=== PATIENT | male | born 1955 | race Caucasian/White ===

== ENCOUNTER 2024-12-19 17:16 | Inpatient (IN) | payer MEDICARE, SELFPAY ==
[2024-12-19 09:53] VITALS: BMI 22.4
[2024-12-19 10:07] VITALS: BP 130/76
--- NOTE | 2024-12-19 11:17 | ED.GENMED ---
History of Present Illness
<JOSE Winston Last Filed: 12/20/24 06:08>
General
Chief Complaint: Abdominal Pain
Source: patient
Exam Limitations: none
Time Seen by Provider: 12/19/24 10:50
History of Present Illness
History of Present Illness:
see MDM
Past History
<JOSE Winston Last Filed: 12/20/24 06:08>
Past History
ED Past Medical History: Other (cardiac amyloidosis)
ED Past Surgical History: Appendectomy
Social History
Tobacco: Non-smoker
Alcohol: None
Drug: None
Personal:
Review of Systems
<JOSE Winston Filed: 12/20/24 06:08>
Review of Systems
Allergies reviewed?: Yes
All Other Systems: Not applicable
Phy Exam
<JOES Winston Last Filed: 12/20/24 06:08>
Physical Exam
Physical Exam:
GENERAL: Alert , in no apparent distress
EYE: pupils equal and reactive
NECK: Supple
ENT: o/p clr, mmm.
CARDIAC: Regular rate and rhythm .
LUNGS: Clear breath sounds bilaterally, no acute respiratory distress, no wheezes/rales/rhonchi
ABDOMEN: Soft, tender RUQ most significantly; also lower abd tenderness milmd RLQ and LLQ
mild voluntary guarding
no rebound no cvat, normal bowel sounds
NEUROLOGICAL: Alert and oriented, no focal neuro deficits
SKIN: Warm and dry, skin intact.
MUSCULOSKELETAL: No edema, well perfused. neg param's sign
PSYCH: Normal and appropriate interaction.
Course
<JOSE Winston Last Filed: 12/20/24 06:08>
Orders/Labs/Results
Orders:
Orders
12/19/24 11:04
0.9% Sodium Chloride 1000 ml [Nss] 1,000 ml IV BOLUS
HYDROmorphone [Dilaudid] 0.5 mg IV NOW STA
Ondansetron Injectable [Zofran] 4 mg IV NOW STA
12/19/24 11:22
Complete Blood Count/With Diff Urgent
Comprehensive Metabolic Panel Urgent
Lactic Acid Urgent
Lipase Urgent
Urinalysis Reflex To Culture Urgent
Date Specimen was Collected: 12/19/24
Time Specimen was Collected: 11:16
Urine Microscopic Reflex Cult Urgent
Urine Culture Urgent
WILEY Source: U
Specimen Description:
Date Specimen was Collected: 12/19/24
Time Specimen was Collected: 11:16
12/19/24 12:28
US Abdomen Complete/Upper Urgent
Comment:
Reason For Exam: fever, vomiting RUQ pain
12/19/24 14:35
CT Abd/Pel (IV only)-DH only Urgent
Comment:
Reason For Exam: abd pain, vomiting, fever
12/19/24 14:44
0.9% Sodium Chloride 1000 ml [Nss] 1,000 ml IV BOLUS
Acetaminophen [Tylenol] 1,000 mg PO NOW STA
12/19/24 14:46
Piperacillin/Tazo 3.375 Gram [Zosyn] 3.375 gram in 50 ml IV NOW
12/19/24 Dinner
NPO
Allow oral meds: Yes
Allow clear liquids: Sips of Clears
12/19/24 16:49
SURGICAL CONSULT Urgent
Consulting Provider: Jack Nolan
Was physician already notified: Yes
12/19/24 17:00
Blood Culture Q30M
WILEY Source: Blood/Venous
Specimen Description:
12/19/24 17:01
Admit/Transfer Patient As Directed
Co-Sign Provider:
Level of Care: Inpatient admission
Assign to:: Medical/Surgical
Physician / Group: james
Diagnosis: cholecystitis
Reason for Hospitalization: cholecystitis
Expected length of stay greater than two midnights?: Yes
ELOS- Estimated Length of Stay in days: 2
I certify the patient meets the requirements for IP care: Yes
PRN Pain Medication Management As Directed
May give lesser potent ordered pain med per pt: Yes
preference::
Protocol:: Medication orders for pain may be administered in a
manner that supports deferring to patient preference
when the pt is:
- Requesting an ordered lesser potent pain medication.
Least to most potent pain medications are defined
as: acetaminophen < NSAID < tramadol < opioids
(morphine, oxycodone, hydromorphone).
- Requesting a lesser dose of the same medication IF
ORDERED.
- Requesting a less intrusive route of administration
if both routes are prescribed by the provider (PO <
IV).
12/19/24 17:02
Code Status As Directed
Resuscitation Status: Full Code
12/19/24 17:30
Blood Culture Q30M
WILEY Source: Blood/Venous
Specimen Description:
12/19/24 18:11
0.9% Sodium Chloride 1000 ml [Nss] 1,000 ml IV 100 mls/hr
HYDROmorphone [Dilaudid] 0.5 mg IV Q4HPRN PRN
Ondansetron Injectable [Zofran] 4 mg IV Q6HPRN PRN
12/19/24 18:11
Activity As Directed
Activity Level: As Tolerated
Pneumatic Compression Sleeves As Directed
Type: Knee high
Vital Signs As Directed
Frequency: Per unit guidelines
DX Deep Vein Thrombosis Video Routine
12/19/24 21:00
Acetaminophen [Tylenol] 650 mg PO Q4HPRN PRN
Piperacillin/Tazo 3.375 Gram [Zosyn] 3.375 gram in 50 ml IV Q6H
12/20/24 06:00
Complete Blood Count/With Diff IN AM
Comprehensive Metabolic Panel IN AM
Abnormal Lab Results
12/19/24
11:22
WBC 17.5 H 10^3/uL
(4.8-10.8)
MPV 10.5 H fL
(7.4-10.4)
Abs Immat Gran (auto) 0.1 H 10^3/uL
(0-0.05)
Absolute Neuts (auto) 14.6 H 10^3/uL
(1.4-6.5)
Absolute Lymphs (auto) 0.8 L 10^3/uL
(1.2-3.4)
Absolute Monos (auto) 2.0 H 10^3/uL
(0.1-0.6)
Neutrophils % 83.3 H %
(42.2-75.2)
Lymphocytes % 4.6 L %
(20.5-51.1)
Monocytes % 11.3 H %
(1.7-9.3)
Glucose 124 H mg/dl
(70-99)
Total Bilirubin 1.4 H mg/dl
(0.2-1.3)
Urine Ketones 3+ A
(Negative)
Ur Occult Blood Reflex 1+ A
(Negative)
Leukocyte Esterase Rfl 1+ A
(Negative)
Urine Bacteria (Reflex) Few A
(Negative)
Urine Albumin (Reflex) 3+ A
(Neg - Trace)
12/19/24 11:22
12/19/24 11:22
Vital Signs
Initial and Last Documented VS:
Initial Vital Signs
Temp Pulse Resp BP Pulse Ox
37.1 C 112 18 130/76 97
12/19/24 10:07 12/19/24 10:07 12/19/24 10:07 12/19/24 10:07 12/19/24 10:07
Last Documented Vital Signs
Temp Pulse Resp BP Pulse Ox
37.4 C 97 18 104/69 94
12/19/24 23:40 12/19/24 23:40 12/19/24 23:40 12/19/24 23:40 12/19/24 23:40
<Jose David Villa MD - Last Filed: 12/19/24 16:51>
Orders/Labs/Results
Orders:
Orders
12/19/24 11:04
0.9% Sodium Chloride 1000 ml [Nss] 1,000 ml IV BOLUS
HYDROmorphone [Dilaudid] 0.5 mg IV NOW STA
Ondansetron Injectable [Zofran] 4 mg IV NOW STA
12/19/24 11:22
Complete Blood Count/With Diff Urgent
Comprehensive Metabolic Panel Urgent
Lactic Acid Urgent
Lipase Urgent
Urinalysis Reflex To Culture Urgent
Date Specimen was Collected: 12/19/24
Time Specimen was Collected: 11:16
Urine Microscopic Reflex Cult Urgent
Urine Culture Urgent
WILEY Source: U
Specimen Description:
Date Specimen was Collected: 12/19/24
Time Specimen was Collected: 11:16
12/19/24 12:28
US Abdomen Complete/Upper Urgent
Comment:
Reason For Exam: fever, vomiting RUQ pain
12/19/24 14:35
CT Abd/Pel (IV only)-[facility] only Urgent
Comment:
Reason For Exam: abd pain, vomiting, fever
12/19/24 14:44
0.9% Sodium Chloride 1000 ml [Nss] 1,000 ml IV BOLUS
Acetaminophen [Tylenol] 1,000 mg PO NOW STA
12/19/24 14:46
Piperacillin/Tazo 3.375 Gram [Zosyn] 3.375 gram in 50 ml IV NOW
12/19/24 Dinner
NPO
Allow oral meds: Yes
Allow clear liquids: Sips of Clears
12/19/24 16:49
SURGICAL CONSULT Urgent
Consulting Provider: Jack Nolan
Was physician already notified: Yes
12/19/24 17:00
Blood Culture Q30M
WILEY Source: Blood/Venous
Specimen Description:
12/19/24 17:01
Admit/Transfer Patient As Directed
Co-Sign Provider:
Level of Care: Inpatient admission
Assign to:: Medical/Surgical
Physician / Group: james
Diagnosis: cholecystitis
Reason for Hospitalization: cholecystitis
Expected length of stay greater than two midnights?: Yes
ELOS- Estimated Length of Stay in days: 2
I certify the patient meets the requirements for IP care: Yes
PRN Pain Medication Management As Directed
May give lesser potent ordered pain med per pt: Yes
preference::
Protocol:: Medication orders for pain may be administered in a
manner that supports deferring to patient preference
when the pt is:
- Requesting an ordered lesser potent pain medication.
Least to most potent pain medications are defined
as: acetaminophen < NSAID < tramadol < opioids
(morphine, oxycodone, hydromorphone).
- Requesting a lesser dose of the same medication IF
ORDERED.
- Requesting a less intrusive route of administration
if both routes are prescribed by the provider (PO <
IV).
12/19/24 17:02
Code Status As Directed
Resuscitation Status: Full Code
12/19/24 17:30
Blood Culture Q30M
WILEY Source: Blood/Venous
Specimen Description:
12/19/24 18:11
0.9% Sodium Chloride 1000 ml [Nss] 1,000 ml IV 100 mls/hr
HYDROmorphone [Dilaudid] 0.5 mg IV Q4HPRN PRN
Ondansetron Injectable [Zofran] 4 mg IV Q6HPRN PRN
12/19/24 18:11
Activity As Directed
Activity Level: As Tolerated
Pneumatic Compression Sleeves As Directed
Type: Knee high
Vital Signs As Directed
Frequency: Per unit guidelines
DX Deep Vein Thrombosis Video Routine
12/19/24 21:00
Acetaminophen [Tylenol] 650 mg PO Q4HPRN PRN
Piperacillin/Tazo 3.375 Gram [Zosyn] 3.375 gram in 50 ml IV Q6H
12/20/24 06:00
Complete Blood Count/With Diff IN AM
Comprehensive Metabolic Panel IN AM
Abnormal Lab Results
12/19/24
11:22
WBC 17.5 H 10^3/uL
(4.8-10.8)
MPV 10.5 H fL
(7.4-10.4)
Abs Immat Gran (auto) 0.1 H 10^3/uL
(0-0.05)
Absolute Neuts (auto) 14.6 H 10^3/uL
(1.4-6.5)
Absolute Lymphs (auto) 0.8 L 10^3/uL
(1.2-3.4)
Absolute Monos (auto) 2.0 H 10^3/uL
(0.1-0.6)
Neutrophils % 83.3 H %
(42.2-75.2)
Lymphocytes % 4.6 L %
(20.5-51.1)
Monocytes % 11.3 H %
(1.7-9.3)
Glucose 124 H mg/dl
(70-99)
Total Bilirubin 1.4 H mg/dl
(0.2-1.3)
Urine Ketones 3+ A
(Negative)
Ur Occult Blood Reflex 1+ A
(Negative)
Leukocyte Esterase Rfl 1+ A
(Negative)
Urine Bacteria (Reflex) Few A
(Negative)
Urine Albumin (Reflex) 3+ A
(Neg - Trace)
12/19/24 11:22
12/19/24 11:22
Vital Signs
Initial and Last Documented VS:
Initial Vital Signs
Temp Pulse Resp BP Pulse Ox
37.1 C 112 18 130/76 97
12/19/24 10:07 12/19/24 10:07 12/19/24 10:07 12/19/24 10:07 12/19/24 10:07
Last Documented Vital Signs
Temp Pulse Resp BP Pulse Ox
37.4 C 97 18 104/69 94
12/19/24 23:40 12/19/24 23:40 12/19/24 23:40 12/19/24 23:40 12/19/24 23:40
<Priya Norton PA-C - Last Filed: 12/20/24 06:08>
MDM/Problems Addressed
Differential Diagnosis Includes:
see MDM
MDM/Problems Addressed:
Note:
CHIEF COMPLAINT(S)
Acute abdominal pain.
HISTORY OF PRESENT ILLNESS
The patient is a 69-year-old male h/o amyloidosis presenting with a sudden onset of acute abdominal pain that began two days ago. The pain is diffuse, affecting the entire abdominal area, but with some localization to the right upper quadrant. The
pain has been persistent and severe, with the patient rating it as seven on a scale of ten at the time of evaluation, although it was noted to be more intense during initial onset.
The patient denies any previous episodes of similar pain and has not been evaluated for gallstones or kidney stones in the past. No history of fever or recent episodes of diarrhea was reported, although he expressed a wish that diarrhea could
relieve the discomfort. There is no past history of diverticulitis, and he has undergone colonoscopies which reportedly showed no abnormalities, such as diverticulosis.
The patient is normally active and reports significant impact on daily functioning due to the pain, stating, 'Im normally not this weak.' The pain has not been alleviated and is accompanied by overall abdominal tenderness.
PAST MEDICAL HISTORY
- Amyloidosis.
CHRONIC MEDICAL CONDITIONS SIGNIFICANTLY AFFECTING CARE
- Amyloidosis.
ALLERGIES
The patient reports no known allergies.
PHYSICAL EXAM
- Abdominal examination reveals tenderness throughout, with increased tenderness noted over the right upper quadrant.
- Nursing notes reviewed and vital signs reviewed.
PROBLEM LIST
Acute:
- Diffuse abdominal pain with right upper quadrant tenderness.
Chronic:
- Amyloidosis.
PLAN
- Obtain laboratory tests and imaging studies, likely starting with a CT scan unless liver function tests are markedly elevated, in which case an ultrasound will be considered.
- Administer intravenous pain medication and antiemetics (Ondansetron).
- Initiate intravenous fluid therapy.
- Instruct the patient to refrain from oral intake to prepare for potential diagnostic procedures and to determine next steps based on findings.
DIFFERENTIAL DIAGNOSIS
The Differential Diagnosis includes, in no particular order and is not limited to:
- Cholecystitis
- Diverticulitis
- Colitis
- Pancreatitis
- Small bowel obstruction
- Renal colic due to kidney stones
- Hepatitis
- Peptic ulcer disease
- Mesenteric ischemia
- Abdominal aortic aneurysm
12/19/24 - 14:38
Patient reports low levels of both pain and nausea. Pain is rated at 3/10 and is now located lower in the abdomen, distinct from previous episodes. Liver markers are normal; however, the white blood cell count is elevated at 17,000. A CT scan has
been ordered to further investigate the cause of symptoms. The patient is advised to remain NPO until further results are available, but will receive another liter of fluids. Tylenol will be administered for symptom management, and the patient may
request additional IV pain medication if needed. Ultrasound indicates no gallstones, and gallbladder wall thickness is not concerning at this time. Further evaluation is necessary to determine the cause of lower abdominal tenderness, as it is
unlikely to be related to the gallbladder.
Anticipate patient will need to be admitted. Signed out pending CT
<Priya Norton PA-C - Last Filed: 12/20/24 06:08>
*Pulse Oximetry
SaO2: 97
Oxygen Mode of Delivery: Room air
Patient hypoxic: no (97)
*Critical Care Note
Total Time (30-74mins, 75-104mins- exclusive of procedures): Not Applicable
ED Attending Note
<Priya Norton PA-C - Last Filed: 12/20/24 06:08>
-
Portions of this chart may have been created with voice recognition software.� Occasional wrong word or��sound alike� substitutions may have occurred due to the inherent limitations of voice recognition software.
<Jose David Villa MD - Last Filed: 12/19/24 16:51>
ED Attending Note
Patient seen and examined by attending physician: Yes
ED Attending Note:
I have seen and evaluated the patient with a [id number] encounter. I have spoken to the advance practicer provider and involved in the medical history, the physical exam, medical decision making.
Evaluation and management service: agree unless noted differently below.
Results interpretation: agree unless noted differently below.
Focused HPI: 69-year-old male presents to the emergency room with his for evaluation of abdominal pain with fever. Patient reports onset of symptoms 3 days ago and have been constant since that time. He reports diffuse pain in the abdomen.
Associated with nausea and vomiting. He has fevers and generalized achiness. He reports very poor appetite. Denies similar symptoms the past. He does have prior surgical history of appendectomy.
Physical exam: Awake and alert nontoxic. Tachycardic and febrile here. Normotensive. Abdomen soft, diffusely tender maybe slightly worse on the right side. No peritoneal signs.
Medical Decision Makin-year-old male presents with fever and abdominal pain. Vitals and exam as above. His labs were significant for leukocytosis. Urinalysis essentially bland. His upper abdominal ultrasound showed no signs of
cholecystitis. We are awaiting results of CT abdomen. Given fluids and antipyretics. Continue to monitor.
CT reviewed and interestingly on CT there is signs concerning for cholecystitis. No other clear source for infection. Received IV antibiotics here. Case discussed with general surgery for assessment. Will admit to the hospitalist service for
continued management. Discussed case with hospitalist.
Discharge Plan
Departure
Patient Disposition: Admit
Date of Disposition: 12/19/24
Time of Disposition: 16:50
Admit to doctor: James
Presentation/result/management discussed w/ accepting MD/DO: Hospitalist
Discharge Problem:
Acute cholecystitis
Interventions
Interventions:
*Risk Screen - Suicide Last Done: 12/19/24 10:07
*General Assessment Last Done: 12/19/24 10:07
*Neglect/Abuse Screening Last Done: 12/19/24 17:46
*ED- Fall Risk Assessment Last Done: 12/19/24 17:46
*ED COVID-19 Vaccine History Last Done: 12/19/24 18:12
*Nursing Disposition Last Done: 12/19/24 17:46
XR-Mfljdw-Ecimqrhqyr Assessment Last Done: 12/19/24 11:33
Discharge Date and Time
Discharge Date/Time: 12/19/24 18:10
[2024-12-19] MEDS: DILAUDID 0.5 MG IV (11:30)
[2024-12-19] MEDS: ZOFRAN 4 MG IV (11:30)
[2024-12-19] MEDS: NSS 1000 IV ×3 (11:31→19:45)
[2024-12-19 11:34] LABS: Hematocrit 45.4 % (39.0-52.0); Hemoglobin 15.8 g/dL (13.0-18.0); Mean Corp Hgb Conc. 34.8 g/dL (33.0-37.0); Mean Corpuscular Volume 87.3 fL (80.0-94.0); Nucleated Red Blood Cells % 0 % (-); Platelet Count 173 10^3/uL (130-400); Red Cell Dist. Width 13.6 % (11.5-14.5)
[2024-12-19 11:55] LABS: ALT (SGPT) 25 U/L (0-50); AST (SGOT) 26 U/L (17-59); Albumin 4.2 g/dl (3.5-5.0); Alkaline Phosphatase 90 U/L (38-126); Blood Urea Nitrogen 14 mg/dl (9-20); Calcium 9.0 mg/dl (8.4-10.2); Carbon Dioxide 27 mmol/L (22-30); Chloride 98 mmol/L (98-107); Estimated Creatinine Clearance 82 ml/min; Glucose 124 mg/dl (70-99); Lipase 54 U/L (23-300); Potassium 4.1 mmol/L (3.5-5.1); Sodium 135 mmol/L (135-145); Total Protein 6.7 g/dl (6.3-8.2); eGFR > 60.00
[2024-12-19 12:48] LABS: Urine Character Clear (Clear)
[2024-12-19 13:34] LABS: Urine Red Blood Cell 0-2 /HPF (0-2)
[2024-12-19] MEDS: TYLENOL 1000 MG PO (14:53)
[2024-12-19] MEDS: ZOSYN 50 IV ×2 (14:54→20:00)
[2024-12-19 15:22] VITALS: BP 124/79
[2024-12-19 16:54] VITALS: BP 108/61
--- NOTE | 2024-12-19 17:04 | HPS.HSE ---
Family Physician
-
Family Physician: Flory Rosales MD
Chief Complaint
-
abdominal pain
History of Present Illness
69-year-old male past medical history of cardiac amyloidosis on Vyndamax, presenting with diffuse abdominal pain with vomiting and fever of 101 for the past 2 days. Denies diarrhea. Denies chest pain or shortness of breath.
He denies smoking or alcohol or drugs.
Medical History
Past Medical History
Past Medical History: Reports Other (cardiac amyloidosis on Vyndamax,)
Past Surgical History: Reports Other ( Appendectomy, tonsillectomy)
Social History
Tobacco: Non-smoker
Alcohol: None
Drug: None
Family History
Family History: Not pertinent
Allergies / Home Medications
Allergies reflects when Allergies were last updated in [facility].
Home Medications with original date entered in [facility]
Allergy/Medication List:
Allergies
Allergy/AdvReac Type Severity Reaction Status Date / Time
No Known Allergies Allergy Unverified 12/19/24 10:08
Review of Systems
-
History Source: Patient
A 12 point ROS was completed and negative except as noted: Yes
Constitutional: Reports No Symptoms
EENT: Reports No Symptoms
Respiratory: Reports No Symptoms
Cardiac: Reports No Symptoms
Abdomen/GI: Reports See HPI
: Reports No Symptoms
Musculoskeletal: Reports No Symptoms
Skin: Reports No Symptoms
Neurological: Reports No Symptoms
Endocrine: Reports No Symptoms
Hematologic/Lymphatic: Reports No Symptoms
Psych: Reports No Symptoms
Physical Exam
Vital Signs
Vital Signs
Temp Pulse Resp BP Pulse Ox
99.4 F 82 16 108/61 100
12/19/24 16:54 12/19/24 16:54 12/19/24 16:54 12/19/24 16:54 12/19/24 16:54
Physical Exam
General: Well Developed, Well Nourished and No Apparent Distress
HEENT: NormoCephalic, Moist mucous membranes and Atraumatic
Respiratory: Clear
Cardiac: S1/S2 and Regular Rhythm; No Murmur or Rub
GI: Soft, Non Distended, Normal Bowel Sounds and Tender (diffusely ); No Organomegaly
Rectal: Deferred by Provider
Musculoskeletal: No Clubbing, No Cyanosis and No Edema
Skin: No Rash
Neuro: Nonfocal/grossly intact
Laboratory Results
-
12/19/24 11:22
12/19/24 11:22
Laboratory Results
Lactic Acid 1.0 mmol/L (0.7-2.0) 12/19/24 11:22
Total Bilirubin 1.4 mg/dl (0.2-1.3) H 12/19/24 11:22
AST 26 U/L (17-59) 12/19/24 11:22
ALT 25 U/L (0-50) 12/19/24 11:22
Alkaline Phosphatase 90 U/L (38-126) 12/19/24 11:22
Lipase 54 U/L (23-300) 12/19/24 11:22
Data Reviewed
-
Lab Data: Labs Reviewed by me
Old Records: Reviewed
Impression/Plan
-
IMPRESSION:
PLAN:
# Acute cholecystitis
-Leukocytosis
-Urinalysis negative
-N.p.o.
-IV fluids
-Zofran, Dilaudid
-Zosyn
-Abdominal ultrasound negative
-CT abdomen pelvis shows mild diffuse irregular gallbladder wall thickening, mild gallbladder distention and mild to moderate Gaurang cholecystic inflammation suggesting acute cholecystitis, mild reactive wall thickening in the second part of the
duodenum
- General Surgery consult
Cardiac amyloidosis
-On Vyndamax
-Reportedly normal ejection fraction
Full code
DVT prophylaxis�SCDs
N.p.o.
--- NOTE | 2024-12-19 17:50 | CON.GS ---
Consultation
-
Date/Time Consultation Performed: 12/19/2024 1750
Performing Provider: An
Reason for Consultation: abdominal pain
Medical History
-
Chief Complaint: Abdominal pain, fever chills
History of Present Illness:
Patient is a 69-year-old male presenting to the emergency department secondary to a 3-day history of generalized abdominal pain followed by fevers chills and nausea. Past medical history notable for cardiac amyloidosis but with preserved cardiac
function. Past medical history only for open appendectomy.
Patient and his state he was in his usual baseline state of health until Tuesday morning when he took note of the acute onset of a generalized abdominal pain that was quite severe. Tuesday he had some friends over but does not recall eating any
particular food out of the usual. No similar episodes like this in the past. The pain was nonlocalizing and throughout the abdomen. He denies any radiation into the back or scapular area. He states that it was a 13 out of 10 when it first
started and then it began to slowly ease up to 9 out of 10 the last 48 hours. He initially had nausea and a few episodes of vomiting. He has not moved his bowels in the past few days. No significant oral intake. Anorexia. Fevers chills 24 to 36
hours. No symptoms.
Past Medical History
Past Medical History: Other (Cardiac amyloidosis)
Past Surgical History: Appendectomy
Social History
Tobacco: Non-Smoker
Personal:
Living: With Family
Family History
Family History: Reviewed & Noncontributory
Allergies / Home Medications
Allergy/AdvReac Type Severity Reaction Status Date / Time
No Known Allergies Allergy Unverified 12/19/24 10:08
�Medication �Instructions �Recorded �Confirmed �Type
tafamidis 61 mg capsule (Vyndamax) 61 mg PO QPM 12/19/24 12/19/24 History
Review of Systems
-
History Source: Patient and Family
All other systems: Negative unless noted
A 10 point review of systems was completed, and was negative except as per HPI.
Physical Exam
Vital Signs
Temp Pulse Resp BP Pulse Ox
99.4 F 82 16 108/61 100
12/19/24 16:54 12/19/24 16:54 12/19/24 16:54 12/19/24 16:54 12/19/24 16:54
12/18/24 12/19/24 12/20/24
06:59 06:59 06:59
Actual Weight 77.111 kg
Body Mass Index (BMI) 22.4
Lab Results
12/19/24 11:22
12/19/24 11:22
WBC 17.5 10^3/uL (4.8-10.8) H 12/19/24 11:22
Hgb 15.8 g/dL (13.0-18.0) 12/19/24 11:22
Hct 45.4 % (39.0-52.0) 12/19/24 11:22
Plt Count 173 10^3/uL (130-400) 12/19/24 11:22
Abs Immat Gran (auto) 0.1 10^3/uL (0-0.05) H 12/19/24 11:22
Neutrophils % 83.3 % (42.2-75.2) H 12/19/24 11:22
Physical Exam
General: Well Developed, Well Nourished, No Apparent Distress and Comfortable (But acutely ill-appearing. Evaluated in emergency department lying on stretcher. at bedside)
HEENT: Normocephalic, Anicteric, Moist Mucous Membranes and Atraumatic
Respiratory: Non Labored Respirations
GI: Soft, Non Distended, Tender (Generalized tenderness on palpation. No rebound. Occasional guarding somewhat localizing to the right hemiabdomen more than left.) and Other (Negative Galvan's.)
Skin: Warm
Neuro: AO x 3
Psych: Calm
Data Reviewed
-
Radiology: Image Personally Visualized and interpreted (Gallbladder without stones sludge or radiopaque debris. No wall thickening. No pericholecystic edema. No biliary ductal dilation. Common bile duct 3.3 mm.), Report Reviewed by me, Discussed
with Patient and Discussed with Family
CT Scan: Image Personally Visualized and interpreted, Report Reviewed by me, Discussed with Patient, Discussed with Family and Other (In the right upper quadrant there is an inflammatory reaction around the region of the transverse colon 2nd/3rd
portion of the duodenum and adjacent to the gallbladder. The gallbladder itself does not appear to have thickening. There are no radiopaque stones. There is no biliary ductal dilation.)
Labs: Labs Reviewed by me (White blood cell count 17.5, chemistry panel notable for slightly elevated bilirubin of 1.4. Remaining LFTs normal as well as lipase.), Discussed with Patient and Discussed with Family
Assessment / Plan
-
Assessment: 69-year-old male presenting with acute generalized abdominal pain but right sided tenderness with leukocytosis, anorexia and fevers.
Ultrasound imaging unremarkable (no gallstones, no gallbladder wall thickening or pericholecystic edema) however CT abdomen/pelvis shows inflammatory process in the right upper quadrant around the region of the hepatic flexure/transverse colon/2nd
and 3rd portion of the duodenum and adjacent to the gallbladder. No gallstones. No biliary ductal dilation. Radiology suspicion is for cholecystitis as the primary source of inflammation however not definitive on my review of images nor based on
examination.
Differential diagnosis includes acute cholecystitis, choledocholithiasis with cholangitis, segmental colitis as well as duodenitis.
Plan: Agree with admission, IV fluid hydration and bowel rest with empiric antibiotic coverage of the GI tract, Zosyn initiated.
Recommend further imaging with HIDA scan to evaluate for cystic duct patency.
Repeat CBC and CMP tomorrow a.m.
Further surgical recommendations pending HIDA results -if positive and there is nonvisualization of the gallbladder and we would discuss further indication for cholecystectomy. If HIDA scan negative await clinical course for further determination
regarding patient's.
Will follow.
Any of the patient's or his 's concerns or questions were comfortably fully addressed.
[2024-12-19 18:19] VITALS: BP 106/64
--- NOTE | 2024-12-19 18:24 | PTCARENOTE ---
Received patient from ER via stretcher around 1805 in stable condition. Patient and oriented to room. Call combs in reach.
[2024-12-19 23:40] VITALS: BP 104/69
[2024-12-20] VITALS (10 sets, daily range): BP systolic 87–135; BP diastolic 48–69
[2024-12-20] MEDS: ZOSYN 50 IV ×3 (02:25→21:03)
[2024-12-20] MEDS: NSS 1000 IV ×2 (05:15→17:28)
[2024-12-20 06:25] LABS: Hematocrit 40.2 % (39.0-52.0); Hemoglobin 14.0 g/dL (13.0-18.0); Mean Corp Hgb Conc. 34.8 g/dL (33.0-37.0); Mean Corpuscular Volume 89.3 fL (80.0-94.0); Platelet Count 145 10^3/uL (130-400); Red Cell Dist. Width 13.9 % (11.5-14.5)
[2024-12-20 06:26] LABS: Nucleated Red Blood Cells % 0 % (-)
[2024-12-20 06:58] LABS: ALT (SGPT) 23 U/L (0-50); AST (SGOT) 23 U/L (17-59); Albumin 3.3 g/dl (3.5-5.0); Alkaline Phosphatase 85 U/L (38-126); Blood Urea Nitrogen 15 mg/dl (9-20); Calcium 8.5 mg/dl (8.4-10.2); Carbon Dioxide 24 mmol/L (22-30); Chloride 104 mmol/L (98-107); Estimated Creatinine Clearance 74 ml/min; Glucose 101 mg/dl (70-99); Potassium 3.7 mmol/L (3.5-5.1); Sodium 136 mmol/L (135-145); Total Protein 5.8 g/dl (6.3-8.2); eGFR > 60.00
[2024-12-20] MEDS: TYLENOL 650 MG PO (07:58)
[2024-12-20] MEDS: DILAUDID 0.5 MG IV (07:59)
[2024-12-20] MEDS: ZOFRAN 4 MG IV (08:02)
--- NOTE | 2024-12-20 09:10 | W.PN.GS2 ---
Today's Communication / Plan
-
`
Assessment / Plan
-
Assessment: 69-year-old male presenting with acute generalized abdominal pain but right sided tenderness with leukocytosis, anorexia and fevers.
Ultrasound imaging unremarkable (no gallstones, no gallbladder wall thickening or pericholecystic edema) however CT abdomen/pelvis shows inflammatory process in the right upper quadrant around the region of the hepatic flexure/transverse colon/2nd
and 3rd portion of the duodenum and adjacent to the gallbladder. No gallstones. No biliary ductal dilation. Radiology suspicion is for cholecystitis as the primary source of inflammation however not definitive on my review of images nor based on
examination.
Differential diagnosis includes acute cholecystitis, choledocholithiasis with cholangitis, segmental colitis as well as duodenitis.
low grade temps, LFTs normal, WBC improving
Plan: NPO IVF supportive care
empiric abx coverage with Zosyn
added PPI as well
HIDA today - d/w nuc med dept
Subjective Data
-
Date of Service: December 20, 2024
pt seen and examined
at bedside
episode of increased abd pain earlier this AM with sweats; more right sided than other area of abdomen
mild nausea
+fl and BM this AM
Objective Data
-
Intake and Output
12/19/24 12/20/24 12/21/24
06:59 06:59 06:59
Intake Total 1200 / 1200
Balance 1200 / 1200
Intake:
Oral fluids 1100 / 1100
IV piggybacks 100 / 100
Other:
Number of approximated MODERATE 1
amounts of urine
Number of approximated LARGE 1
amounts of urine
Vital Signs
Temp Pulse Resp BP Pulse Ox
100.2 F 94 18 135/69 95
12/20/24 07:52 12/20/24 07:52 12/20/24 07:52 12/20/24 07:52 12/20/24 07:52
Lab Results
12/20/24 05:21
12/20/24 05:21
Calcium 8.5 mg/dl (8.4-10.2) 12/20/24 05:21
Total Bilirubin 1.3 mg/dl (0.2-1.3) 12/20/24 05:21
AST 23 U/L (17-59) 12/20/24 05:21
ALT 23 U/L (0-50) 12/20/24 05:21
Alkaline Phosphatase 85 U/L (38-126) 12/20/24 05:21
Total Protein 5.8 g/dl (6.3-8.2) L 12/20/24 05:21
Albumin 3.3 g/dl (3.5-5.0) L 12/20/24 05:21
Physical Exam
-
NAD AAOx3 but acutely ill appearing
ABD: soft, ND, TTP right side, no rebound, some guarding on deeper palpation
[2024-12-20] MEDS: NSS (PRESERVATIVE FREE) 10 ML IV (12:15)
[2024-12-20] MEDS: PROTONIX IV 40 MG IV (12:15)
--- NOTE | 2024-12-20 12:21 | W.PN.HOSP.TC ---
Today's Communication/Plan
-
see outlined plan below
Assessment / Plan
Assessment / Plan
Assessment:
Acute cholecystitis
- CT: Mild diffuse irregular gallbladder wall thickening, mild gallbladder distention, and mild to moderate pericholecystic inflammation in the right upper quadrant of the abdomen suggesting ACUTE CHOLECYSTITIS. Mild reactive wall thickening in the
2nd portion of the duodenum and in the hepatic flexure of the colon without evidence for acute colonic diverticulitis or duodenal ulceration.
- HIDA: cystic duct obstruction and acute cholecystitis
- NPO for OR Today
- IVF
- IV Zosyn; follow cultures
- pain control/anti-emetics
- GS following
Cardiac amyloidosis
- On Vyndamax
- Reportedly normal ejection fraction
DVT ppx: SCDs
Code: Full
Anticipated Discharge: > 48 hours
Subjective/Interval History
-
Date of Service: December 20, 2024
reports RUQ discomfort
HIDA consistent with cystic duct obstruction and acute cholecystitis
for OR Today
Objective Data
-
Labs:
Laboratory Results
12/20/24
05:21
WBC 13.1 H
Hgb 14.0
Hct 40.2
Plt Count 145
Sodium 136
Potassium 3.7
Chloride 104
Carbon Dioxide 24
BUN 15
Creatinine 1.0
Glucose 101 H
Calcium 8.5
Total Bilirubin 1.3
AST 23
ALT 23
Alkaline Phosphatase 85
Vital Signs:
Vital Signs
Temp Pulse Resp BP Pulse Ox
100.2 F 94 18 135/69 95
12/20/24 07:52 12/20/24 07:52 12/20/24 07:52 12/20/24 07:52 12/20/24 07:52
I&O
12/19/24 12/20/24 12/21/24
06:59 06:59 06:59
Intake Total 1200 / 1200
Balance 1200 / 1200
Physical Exam
-
General: No Apparent Distress
HEENT: Normocephalic and Atraumatic
Respiratory: Negative Wheezes
Cardiac: Regular Rhythm and S1/S2
GI: Soft and Tender (RUQ)
Genito-urinary: No Costovertebral Tender
Musculoskeletal: No Edema
Neuro: AO x 3
Psych: Calm
Data Reviewed
-
Total Time Spent with Patient (in minutes): 44
Labs: Labs Reviewed by me
--- NOTE | 2024-12-20 12:22 | W.PN.SURGUPD ---
Surgical Update
Surgical Update
HIDA scan confirms nonvisualization of gallbladder.
Return to update patient and . We discussed indications for cholecystectomy which he is in agreement to proceed with.
Laparoscopic cholecystectomy with possible cholangiogram was reviewed in detail including the operative technique, alternative treatment options, benefits and risks such as but not limited to bleeding, infectious and wound related complications,
iatrogenic injury to surrounding viscera, bile duct injury, bile leak and postcholecystectomy bowel changes.
Any concerns or questions were confirmed to be fully addressed and informed consent was obtained.
--- NOTE | 2024-12-20 12:23 | W.SUR.PREOP ---
Pre-Operative Surgical Note
-
I have examined this patient prior to the performance of the scheduled procedure.
The patient's condition is unchanged from the time of the current History and
Physical and the patient is able to undergo the scheduled procedure.
--- NOTE | 2024-12-20 13:34 | CM ---
Patient seen at bedside on with patient present. Patient states that they live in a 2 story home with no DME at home. 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 Patient PCP is Dr. Weiss
and [facility]. Patient indicated that he has no needs for discharge. CM will continue to follow for discharge planning as needed.
Plan; home with no needs.
[2024-12-20] MEDS: ZOSYN IV (15:29)
--- NOTE | 2024-12-20 16:59 | W.IMMPOSTOP ---
Addendum entered and electronically signed by Jack Nolan MD 12/20/24 17:12:
#[id number]
Given severity of cholecystitis with gangrenous changes of the gallbladder wall will cover with 5 days postoperative antibiotic coverage. Zosyn during hospitalization and discharged on Augmentin.
Original Note:
Surgical Immed Post Op Note
-
Primary Surgeon: Jack Nolan MD
Assisting Surgeon: Chapo Fairchild
Pre-op Diagnosis: Acute cholecystitis
Post-op Diagnosis: Gangrenous acute cholecystitis
Procedure Performed: Laparoscopic cholecystectomy with cholangiogram
Anesthesia Type: GETA +0.25% Marcaine with epi
Specimen / Cultures: Gallbladder/none
Estimated Blood Loss: 12 mL
Complications: None immediate
Operative Findings: Distended gallbladder encased within acute inflammatory peel. Patchy gangrenous changes along gallbladder wall. No perforation of gallbladder. No disruption of gallbladder during cholecystectomy. Intraoperative cholangiogram
normal and confirmed isolation of cystic duct. Cystic duct, anterior artery and posterior artery controlled with clips.
Gallbladder extracted at epigastric trocar site. No additional incidental findings.
--- NOTE | 2024-12-20 18:46 | PTCARENOTE ---
Received patient back from PACU around 1809 in stable condition. Patient drowsy but arousable. at bedside. Call combs in reach.
[2024-12-21] MEDS: ZOSYN 50 IV ×2 (03:13→10:19)
[2024-12-21 03:17] VITALS: BP 107/66
[2024-12-21] MEDS: NSS 1000 IV ×2 (06:34→10:19)
[2024-12-21 07:00] VITALS: BP 130/75
[2024-12-21 07:14] LABS: Hematocrit 39.2 % (39.0-52.0); Hemoglobin 13.5 g/dL (13.0-18.0); Mean Corp Hgb Conc. 34.4 g/dL (33.0-37.0); Mean Corpuscular Volume 89.9 fL (80.0-94.0); Platelet Count 114 10^3/uL (130-400); Red Cell Dist. Width 14.1 % (11.5-14.5)
[2024-12-21 07:55] LABS: ALT (SGPT) 70 U/L (0-50); AST (SGOT) 70 U/L (17-59); Albumin 2.8 g/dl (3.5-5.0); Alkaline Phosphatase 86 U/L (38-126); Blood Urea Nitrogen 18 mg/dl (9-20); Calcium 8.0 mg/dl (8.4-10.2); Carbon Dioxide 27 mmol/L (22-30); Chloride 108 mmol/L (98-107); Estimated Creatinine Clearance 92 ml/min; Glucose 146 mg/dl (70-99); Potassium 4.1 mmol/L (3.5-5.1); Sodium 140 mmol/L (135-145); Total Protein 5.2 g/dl (6.3-8.2); eGFR > 60.00
--- NOTE | 2024-12-21 08:13 | W.PN.GS2 ---
Today's Communication / Plan
-
Dispo planning
Assessment / Plan
-
Assessment: 69-year-old male presenting with acute cholecystitis POD #1 status post laparoscopic cholecystectomy.
Labs: From this morning were reviewed and reassuring.
Diet: Advance to a low-fat diet
Analgesia: Tylenol, Toradol, Dilaudid
Neuro/vascular checks: Per unit protocol
AC/AP: DVT PPx
Activity: Ad Brittny
Wound/Incisions/Drains: Routine
Abx: Will DC with 5 days of antibiotics
Dispo: Will DC today
Time Spent
Total Time Spent with Patient (in minutes): 20
Subjective Data
-
Date of Service: December 21, 2024
Interval Events:
No acute events overnight. Slept well. Pain Controlled. Denies Nausea/Vomiting, +bowel function. Tolerating diet.
Objective Data
-
Intake and Output
12/20/24 12/21/24 12/22/24
06:59 06:59 06:59
Intake Total 1200 / 1200 250 / 250
Balance 1200 / 1200 250 / 250
Intake:
Oral fluids 1100 / 1100 0 / 0
IV fluids (Total) 250 / 250
Normasol 250 / 250
IV piggybacks 100 / 100
Other:
Number of approximated MODERATE 1 3
amounts of urine
Number of approximated LARGE 1
amounts of urine
Vital Signs
Temp Pulse Resp BP Pulse Ox
97.8 F 65 16 130/75 98
12/21/24 07:00 12/21/24 07:00 12/21/24 07:00 12/21/24 07:00 12/21/24 07:00
Lab Results
12/21/24 06:26
12/21/24 06:26
Calcium 8.0 mg/dl (8.4-10.2) L 12/21/24 06:
Total Bilirubin 0.5 mg/dl (0.2-1.3) 12/21/24:
AST 70 U/L (17-59) H 12/21/24:
ALT 70 U/L (0-50) H 12/21/24:
Alkaline Phosphatase 86 U/L (38-126) 12/21/24:
Total Protein 5.2 g/dl (6.3-8.2) L 12/21/24:
Albumin 2.8 g/dl (3.5-5.0) L 12/21/24:
Physical Exam
-
GENERAL/NEURO: Awake, Alert, no distress
CHEST: Unlabored breathing on RA
ABDOMEN: Soft, appropriately tender, mildly distended, incisions clean dry and intact
Patient has a goldstein catheter: No
Patient has a central line: No
--- NOTE | 2024-12-21 09:15 | W.PN.HOSP.TC ---
Today's Communication/Plan
-
dc to home today
Assessment / Plan
Assessment / Plan
Assessment:
Acute cholecystitis
- CT: Mild diffuse irregular gallbladder wall thickening, mild gallbladder distention, and mild to moderate pericholecystic inflammation in the right upper quadrant of the abdomen suggesting ACUTE CHOLECYSTITIS. Mild reactive wall thickening in the
2nd portion of the duodenum and in the hepatic flexure of the colon without evidence for acute colonic diverticulitis or duodenal ulceration.
- HIDA: cystic duct obstruction and acute cholecystitis
- s/p lap servando 12/20
- DC on pain control and 5 days abx per GS
- GS office f/u in 2 weeks
Cardiac amyloidosis
- On Vyndamax
- Reportedly normal ejection fraction
DVT ppx: SCDs
Code: Full
More than 30 minutes spent in discharge including
Final examination of the patient
Summarizing hospital stay
Instructions for continuing care to all relevant caregivers
Preparation of discharge records, prescriptions, and referral forms
Total time spent (in minutes): 41
Anticipated Discharge: Today
Subjective/Interval History
-
Date of Service: December 21, 2024
s/p lap servando
resting well, no complaints such as n/v. + bowel fuction
ambulating well
Objective Data
-
Labs:
Laboratory Results
12/21/24
06:26
WBC 7.2
Hgb 13.5
Hct 39.2
Plt Count 114 L D
Sodium 140
Potassium 4.1
Chloride 108 H
Carbon Dioxide 27
BUN 18
Creatinine 0.8
Glucose 146 H
Calcium 8.0 L
Total Bilirubin 0.5
AST 70 H
ALT 70 H
Alkaline Phosphatase 86
Vital Signs:
Vital Signs
Temp Pulse Resp BP Pulse Ox
97.8 F 65 16 130/75 98
12/21/24 07:00 12/21/24 07:00 12/21/24 07:00 12/21/24 07:00 12/21/24 07:00
I&O
12/20/24 12/21/24 12/22/24
06:59 06:59 06:59
Intake Total 1200 / 1200 250 / 250 600 / 600
Balance 1200 / 1200 250 / 250 600 / 600
Physical Exam
-
General: No Apparent Distress
HEENT: Normocephalic and Atraumatic
Respiratory: Negative Wheezes
Cardiac: Regular Rhythm and S1/S2
GI: Soft
Genito-urinary: No Costovertebral Tender
Neuro: AO x 3
Psych: Calm
Data Reviewed
-
Total Time Spent with Patient (in minutes): 42
Labs: Labs Reviewed by me
--- NOTE | 2024-12-21 09:20 | W.DCSUMMARY ---
Discharge Summary
Discharge Data
Date of Admission: 12/19/24
Date of Discharge: 12/21/24
-
Pending Results: No
Hospital Course
69 y/o M, hx of cardiac amyloidosis presented to ER on 12/19 with RUQ abdominal pain, nausea, fever/chills. CT showed pericholecystic inflammation in the right upper quadrant concerning for acute cholecystitis. LFTs were normal. A HIDA scan confirmed
cystic duct obstruction and acute cholecystitis. Patient underwent lap servando on 12/20. He was discharged home 12/21 with GS follow up. He was prescribed pain control and antibiotics at discharge.
Discharge Plan
-
Patient Disposition: Home (Routine Discharge)
Discharge Diagnosis/Procedures: Acute calculous cholecystitis. Laparoscopic cholecystectomy 12/20
Condition: Good
Diet: As tolerated and Low Fat
Additional Diets: Smaller meals initially after surgery as abdominal bloating and distention are common for the first few days
Activity: No strenuous activity
Driving Restrictions: No driving for 2 to 3 days or if using narcotics
Bathing Restrictions: OK to Shower
Wound Care: Glue at surgical sites typically peels off in 2 to 3 weeks
Activity Restrictions/Additional Instructions:
[facility]
Jack Nolan MD, FACS
[facility]
[address], [address]
[place] [address]
[phone]
Post-Operative Instructions for Gallbladder Surgery
The incision sites are sealed with a surgical glue dressing.� It is safe to shower at any time after surgery when the glue is dry.� Let shower water run over the incisions and then pat dry.
Glue dressing typically peels off in 2-3 weeks.
Abdominal/incisional pain and discomfort, shoulder/scapular pain, bloating, and mild nausea, as well as bruising/stiffness and swelling at the incision sites are common after surgery.� If felt to be excessive, notify us.
Please start postoperative pain management using over the counter medications such as Tylenol and Ibuprofen, per instructions on the bottle, as long as there are no medical reasons why you cannot take these medications.
Ice the incisions sites for 20 minutes every hour or so to help with postoperative incisional pain and reduce postoperative surgical site swelling.� Take care NOT to get an ice burn on the skin surface.
A warm heating pad is often helpful to alleviate shoulder/scapular back pains after laparoscopic procedures.� This pain typically dissipates 24-72hrs post op.
Transition to a low fat diet as tolerated after surgery if not experiencing postoperative nausea or significant bloating/distention.� Some fatty food intolerance may occur shortly after surgery (cramps,bloating, nausea,diarrhea with fat intake).
Constipation is common following surgery and postoperative narcotic use.� May use a stool softener such as Colace (100 mg 2x day) to prevent constipation
If no BM 24hrs after surgery, recommend starting daily Miralax
If no BM in 24-48hrs after starting Miralax --> recommend then using a dose of magnesium citrate or milk of magnesia with a Senokot tablet to help alleviate post operative constipation as long as there is no nausea/vomiting and passing gas.
Resume all preoperative medications as directed on the discharge medication reconciliation paper.
Do not drive or drink alcohol for 24 hrs after having anesthesia -OR- while taking narcotic pain medications.
Resume regular daily light activities, such as walking, standing and going up/down stairs as tolerated within 24hrs of surgery.� Please refrain from lifting over 15-20 lbs or strenuous exercise until postoperative follow up visit &/or approximately
3-4 weeks.�
Call the office with a fever above 101� F, nausea with vomiting, severe abdominal pain, yellowing of skin or eyes, spreading redness and drainage from incision sites or with any concerns/questions.
If not arranged prior to surgery, please call the office to schedule or confirm your postoperative surgical follow-up office visit with Dr. Nolan.
Referrals:
Flory Rosales MD [Family Provider, Family Practice]
Jack Nolan MD [Active, Surgical] - in two weeks
Prescriptions:
New
acetaminophen 325 mg tablet
650 mg PO Q6HPRN PRN (Reason: mild pain) Qty: 14 0RF
ibuprofen 600 mg tablet
600 mg PO Q6H PRN (Reason: pain) Qty: 14 0RF
amoxicillin-pot clavulanate 875-125 mg tablet
1 tab PO Q12 Qty: 10 0RF
oxycodone 5 mg tablet
5 mg PO Q6HPRN PRN (Reason: breakthrough/severe pain) Qty: 8 0RF
Continued
Vyndamax 61 mg Capsule
61 mg PO QPM
Discharge Orders:
Discharge Patient (As Directed); Ordered 12/21/24
Ordered By: Sowmya Rudd
Discharge Date and Time
Print Language: [place]IZ[place]
[2024-12-21] MEDS: PROTONIX IV 40 MG IV (10:18)
[2024-12-21] MEDS: NSS (PRESERVATIVE FREE) 10 ML IV (10:18)
[2024-12-21] MEDS: TORADOL 10 MG IV (10:20)
--- NOTE | 2024-12-21 11:57 | CM ---
F/U: Hospitalist stated that patient can discharge home. There are no needs. IMM completed. PLAN: Home No Needs.
[2024-12-21 13:01] VITALS: BP 125/73
== END 2024-12-21 13:35 | disposition home or self-care (01) | DRG 418 ==
LOC: 2 SOUTH 17:16
PROVIDERS: Physician Assistant; ADMITTING PHYSICIAN Hospitalist; ATTENDING PHYSICIAN Internal Medicine; CONSULT PHYSICIAN Surgery; EMERGENCY PHYSICIAN Emergency Medicine; FAMILY PHYSICIAN Family Medicine
PROC: 0FT44ZZ Resection of Gallbladder, Percutaneous Endoscopic Approach (ICD-10-PCS; 2024-12-20)
PROC: BF141ZZ Fluoroscopy of Gallbladder, Bile Ducts and Pancreatic Ducts using Low Osmolar Contrast (ICD-10-PCS; 2024-12-20)
DX: K80.01 Calculus of gallbladder with acute cholecystitis with obstruction (principal); E85.4 Organ-limited amyloidosis; I43 Cardiomyopathy in diseases classified elsewhere; I96 Gangrene, not elsewhere classified
CPT/HCPCS: 74177; 74300; 76000; 76700; 78226; 80053; 81003; 81015; 83605; 83690; 85025; 85027; 87040; 87086; 88304; 99285; A4300; A9537; Q9967